=== PATIENT | male | born 1960 | race Caucasian/White ===

== ENCOUNTER 2021-01-17 11:56 | Outpatient (CLI) | payer OTHER ==
--- NOTE | 2021-01-17 12:46 | RAD ---
EXAM: XR Abdomen 1 View/KUB PROVIDED CLINICAL HISTORY: Renal colic COMPARISON: 1 view pelvis 11/24/2007 FINDINGS: Bowel gas pattern is nonspecific. No obvious suspicious calcifications are seen overlying the expecte d location of the renal shadows or along the course of either ureter. Vascular calcifications and phleboliths overlie the pelvis. Degenerative changes are seen in the spine. Widening of the pubic sym physis and evidence of remote fracture of the left superior pubic ramus is present. These findings are chronic in origin and were noted to be acute on prior views of the pelvis. IMPRESSION: 1. No definite suspicious calcifications are seen overlying the location of the renal collecting syst ems or along the course of either ureter. However, this would be better evaluated with noncontrast CT exam if there is strong concern for renal calculus. 2. Chronic findings of the pelvis related to prior injury.
== END 2021-01-17 11:57 | disposition home or self-care (01) ==
LOC: BICRAD 11:56
PROVIDERS: ATTEND Specialist
DX: N23 Unspecified renal colic (principal)
CPT/HCPCS: 74018